=== PATIENT | male | born 1990 | race Caucasian/White ===

== ENCOUNTER 2016-10-22 12:19 | Emergency (ER) | payer OTHER ==
--- NOTE | 2016-10-22 12:58 | DIAGNOSTIC IMAGING REPORT ---
PROCEDURE: XR CHEST 2 VIEW INDICATION: CHEST PAIN, initial encounter TECHNIQUE: PA and lateral view. COMPARISON: None. FINDINGS: Lungs are clear. Cardiovascular structures are normal. Bony thorax is unremarkable. IMPRESSION: 1. Negative chest.
--- NOTE | 2016-10-22 14:00 | ED ORDER SUMMARY ---
..... Patient: DONIS TANG OrderSheet [facility] VisitID: [id number] [place] [address] 26y, M Registration Date/Time: 10/22/2016 ORDER SHEET Weight: 73.4 kg (stated) Allergies: Lidocaine GENERAL ORDERS: Chest 2V Urgent (12:23 10/22/2016 Vicky Paige) (Ack 12:46 LMuller) (12:51 JBoardley R.N.) EKG - ER Stat (12:23 10/22/2016 Vicky Paige) (Ack 12:46 LMuller) (12:51 JBoardley R.N.) Urine Drug Screen Urgent (12:27 10/22/2016 JBoardley R.N. per protocol) (Ack 12:46 LMuller) (14:04 JBoardley R.N.) Cardiac Panel Stat (12:53 10/22/2016 JBoardley R.N. per protocol) (Ack 13:05 LMuller) (13:06 LMuller) MEDICATION ORDERS: IV FLUIDS: IV Saline Lock (12:52 10/22/2016 JBoardley R.N. per protocol) (12:52 JBoardley R.N.) IV NS : initial bolus none -, then 1000 mL/hr for X1 (NOW); Routine (12:52 10/22/2016 JBoardley R.N. per protocol) (12:53 JBoardley R.N.) ORDER SHEET NOTES: [Electronically signed by Cecil Loza R.N. (14:54 10/22/2016)] [Electronically signed by Andre Cho Dr. (06:34 10/25/2016)] [Electronically locked/signed by Cecil Loza R.N. (14:54 10/22/2016)]
--- NOTE | 2016-10-22 14:00 | ED NURSING NOTES ---
Clinical Report - Nurses [facility] [address] [place] [address] 10/22/2016 12:20 Patient: DONIS TANG TRIAGE Triage time 12:22. Acuity: LEVEL 3. Chief Complaint: CHEST PAIN. 12:23 10/22/16. 12:10/22/16. Alert. --12:25 Cecil Loza R.N. 12:10/22/16. BP: 168/85. HR: 90. RR: 18. O2 saturation: 100% on room air. Temp: 98.2 F (oral). --12:25 Cecil Loza R.N. Weight: 73.4 kg stated. Height/Length: 70 inches Per Patient. BMI: 23.2. --12:22 Cecil Loza R.N. Medications Adderall Oral 30 mg, daily. Valium 10mg day. --12:24 Cecil Loza R.N. PROzac Oral. --12:25 Cecil Loza R.N. Medication/allergy information source: the patient. --12:25 Cecil Loza R.N. Allergies Lidocaine. Definite Severe(swelling) (during dental procedure) --12:24 Cecil Loza R.N. History Arrived by private vehicle. Historian: patient. Unaccompanied. Primary physician (YASMIN DESAI). 12:23 10/22/16. This started just prior to arrival. Onset. (30 min ago after drinking energy drink). Treatment DAIRY MANUFACTURING TECHNOLOGIST: None. PAST MEDICAL HX: Immunizations not up to date. SOCIAL HX: Current every day light tobacco smoker (cigarette)- less than 1/2 a pack per day. History of occasional drug use: methamphetamines, marijuana. ("Other stuff in my system"). No alcohol use. No infectious disease exposure. FALL RISK ASSESSMENT: Fall risk assessment completed. No fall risk identified. NUTRITIONAL RISK ASSESSMENT: The nutritional risk assessment revealed no deficiencies. FUNCTIONAL ASSESSMENT: Functional assessment: no impairments noted. LEARNING NEEDS ASSESSMENT: The learning needs assessment revealed no barriers. --12:25 Cecil Loza R.N. PROBLEMS: Sprain. Contusion. Fall. Substance Abuse. Rt great toe injury.. Laceration. Gout. Acute Pain. Tetanus Status. ADHD - Attention Deficit Hyperactivity Disorder. Anxiety Reaction. Depression. Insomnia. --12:25 Cecil Loza R.N. ADDITIONAL SURGERIES: no known surgeries. Assessment 12:10/22/16. --12:25 Cecil Loza R.N. Interventions 12:10/22/16. 12:10/22/16. ID and allergy band on patient. To treatment room. --12: Cecil Loza R.N. PHYSICAL ASSESSMENT 12:10/22/16. GENERAL / NEURO / PSYCH: Alert. Oriented X 4. Appears anxious. RESPIRATORY: Respirations not labored. CVS: Cardiac rhythm: sinus tachycardia. EXTREMITIES: No lower extremity edema. SKIN: Skin is warm and dry. --12: Cecil Loza R.N. 12:10/22/16. CVS: Pulses within normal limits. Capillary refill less than 2 seconds. --12:25 Cecil Loza R.N. NURSING PROGRESS NOTES 12:10/22/16. The plan of care for this patient has been created. Oxygen administered at 2 liters. pelt inspector, pulse oximeter and NIBP monitor placed on patient; monitor alarms on. Patient gowned. Head of bed elevated. Reassurance given. Two patient identifiers checked. Call light placed in reach. Side rails up x 2. Bed placed in lowest position. Brakes of bed on. Brakes of chair on. --12: Cecil Lzoa R.N. 12:10/22/16. Patient ready for evaluation- chart flagged and notification provided. --12: Cecil Loza R.N. 12:10/22/16. ( Pt is unable to provide urine). --12: Cecil Loza R.N. 12:47 10/22/2016 Site #1 started via IV in the right with an 20g angiocath, with aseptic technique and good blood return; one attempt. Blood drawn: rainbow set. Labeled in the presence of the patient and sent to the lab. --12:52 Cecil Loza R.N. 12:53 10/22/2016 Started bag #1 1000 mL IV Fluids IV NS (Saline); at 1000 mL/hr over 1 hour(s) via site #1. Allergies verified and confirmed 5 rights. IV patency established. IV site checked: no pain, redness, or swelling. IV flushed thoroughly pre- and post-medication administration. Completed per protocol. --12:53 Cecil Loza R.N. 12:59 10/22/16. EKG time: (1301). EKG was ordered, performed by a tech and shown to the ED physician. --12:59 Cecil Loza R.N. 12:10/22/16. BP: 137/82. HR: 98. RR: 22. O2 saturation: 100% on room air. --12:59 Cecil Loza R.N. 12:59 10/22/16. Cardiac rhythm: normal sinus rhythm. --12:59 Cecil Loza R.N. 13:59 10/22/2016 Site #1 removed upon discharge. Catheter intact. --14:04 Cecil Loza R.N. 14:10/22/2016 IV Fluids IV NS Discontinued: bag #1 infused. Total amount infused: 1000 mL. IV patency established. IV site checked: no pain, redness, or swelling. IV flushed thoroughly. --14:05 Cecil Loza R.N. DISPOSITION / DISCHARGE 14:10/22/16. Condition at departure: improved. The goals identified in the patient's plan of care were met. No learning barriers present. Discharge instructions provided and reviewed with the patient. Reviewed warnings. Reviewed medication(s). Treatments reviewed. Patient verbalized understanding. Written instructions provided in [place]an. The patient was discharged by the physician. He was discharged home and accompanied by aircraft structural repairer. He left the Emergency Department ambulatory and via private vehicle. School Inspector driving. FALL RISK ASSESSMENT: Fall risk assessment completed. No fall risk identified. --14:06 Cecil Loza R.N. 14:10/22/16. BP: 134/72. HR: 77. RR: 14. O2 saturation: 100% on room air. Temp: 98.1 F (oral). --14:06 Cecil Loza R.N. 14:06 10/22/16. Departure time: 14:06. --14:06 Cecil Loza R.N. Locked/Released at 10/22/2016 14:54 by Cecil Loza R.N.
--- NOTE | 2016-10-22 14:00 | ED NURSING NOTES ---
Clinical Report - Nurses [facility] [address] [place] [address] 10/22/2016 12:20 Patient: DONIS TANG TRIAGE Triage time 12:22. Acuity: LEVEL 3. Chief Complaint: CHEST PAIN. 12:23 10/22/16. 12:10/22/16. Alert. --12:25 eCcil Loza R.N. 12:10/22/16. BP: 168/85. HR: 90. RR: 18. O2 saturation: 100% on room air. Temp: 98.2 F (oral). --12:25 Cecil Loza R.N. Weight: 73.4 kg stated. Height/Length: 70 inches Per Patient. BMI: 23.2. --12:22 Cecil Loza R.N. Medications Adderall Oral 30 mg, daily. Valium 10mg day. --12:24 Cecil Loza R.N. PROzac Oral. --12:25 Cecil Loza R.N. Medication/allergy information source: the patient. --12:25 Cecil Loza R.N. Allergies Lidocaine. Definite Severe(swelling) (during dental procedure) --12:24 Cecil Loza R.N. History Arrived by private vehicle. Historian: patient. Unaccompanied. Primary physician (YASMIN DESAI). 12:23 10/22/16. This started just prior to arrival. Onset. (30 min ago after drinking energy drink). Treatment RADIOLOGIC TECHNOLOGY PROGRAM DIRECTOR: None. PAST MEDICAL HX: Immunizations not up to date. SOCIAL HX: Current every day light tobacco smoker (cigarette)- less than 1/2 a pack per day. History of occasional drug use: methamphetamines, marijuana. ("Other stuff in my system"). No alcohol use. No infectious disease exposure. FALL RISK ASSESSMENT: Fall risk assessment completed. No fall risk identified. NUTRITIONAL RISK ASSESSMENT: The nutritional risk assessment revealed no deficiencies. FUNCTIONAL ASSESSMENT: Functional assessment: no impairments noted. LEARNING NEEDS ASSESSMENT: The learning needs assessment revealed no barriers. --12:25 Cecil Loza R.N. PROBLEMS: Sprain. Contusion. Fall. Substance Abuse. Rt great toe injury.. Laceration. Gout. Acute Pain. Tetanus Status. ADHD - Attention Deficit Hyperactivity Disorder. Anxiety Reaction. Depression. Insomnia. --12:25 Cecil Loza R.N. ADDITIONAL SURGERIES: no known surgeries. Assessment 12:10/22/16. --12:25 Cecil Loza R.N. Interventions 12:10/22/16. 12:10/22/16. ID and allergy band on patient. To treatment room. --12: Cecil Loza R.N. PHYSICAL ASSESSMENT 12:10/22/16. GENERAL / NEURO / PSYCH: Alert. Oriented X 4. Appears anxious. RESPIRATORY: Respirations not labored. CVS: Cardiac rhythm: sinus tachycardia. EXTREMITIES: No lower extremity edema. SKIN: Skin is warm and dry. --12: Cecil Loza R.N. 12:10/22/16. CVS: Pulses within normal limits. Capillary refill less than 2 seconds. --12:25 Cecil Loza R.N. NURSING PROGRESS NOTES 12:10/22/16. The plan of care for this patient has been created. Oxygen administered at 2 liters. night monitor, pulse oximeter and NIBP monitor placed on patient; monitor alarms on. Patient gowned. Head of bed elevated. Reassurance given. Two patient identifiers checked. Call light placed in reach. Side rails up x 2. Bed placed in lowest position. Brakes of bed on. Brakes of chair on. --12: Cecil Loza R.N. 12:10/22/16. Patient ready for evaluation- chart flagged and notification provided. --12: Cecil Loza R.N. 12:10/22/16. ( Pt is unable to provide urine). --12: Cecil Loza R.N. 12:47 10/22/2016 Site #1 started via IV in the right with an 20g angiocath, with aseptic technique and good blood return; one attempt. Blood drawn: rainbow set. Labeled in the presence of the patient and sent to the lab. --12:52 Cecil Loza R.N. 12:53 10/22/2016 Started bag #1 1000 mL IV Fluids IV NS (Saline); at 1000 mL/hr over 1 hour(s) via site #1. Allergies verified and confirmed 5 rights. IV patency established. IV site checked: no pain, redness, or swelling. IV flushed thoroughly pre- and post-medication administration. Completed per protocol. --12:53 Cecil Loza R.N. 12:59 10/22/16. EKG time: (1301). EKG was ordered, performed by a tech and shown to the ED physician. --12:59 Cecil Loza R.N. 12:10/22/16. BP: 137/82. HR: 98. RR: 22. O2 saturation: 100% on room air. --12:59 Cecil Loza R.N. 12:59 10/22/16. Cardiac rhythm: normal sinus rhythm. --12:59 Cecil Loza R.N. 13:59 10/22/2016 Site #1 removed upon discharge. Catheter intact. --14:04 Cecil Loza R.N. 14:10/22/2016 IV Fluids IV NS Discontinued: bag #1 infused. Total amount infused: 1000 mL. IV patency established. IV site checked: no pain, redness, or swelling. IV flushed thoroughly. --14:05 Cecil Loza R.N. DISPOSITION / DISCHARGE 14:10/22/16. Condition at departure: improved. The goals identified in the patient's plan of care were met. No learning barriers present. Discharge instructions provided and reviewed with the patient. Reviewed warnings. Reviewed medication(s). Treatments reviewed. Patient verbalized understanding. Written instructions provided in [place]. The patient was discharged by the physician. He was discharged home and accompanied by supervisor gear repair. He left the Emergency Department ambulatory and via private vehicle. Director Of Trauma driving. FALL RISK ASSESSMENT: Fall risk assessment completed. No fall risk identified. --14:06 Cecil Loza R.N. 14:10/22/16. BP: 134/72. HR: 77. RR: 14. O2 saturation: 100% on room air. Temp: 98.1 F (oral). --14:06 Cecil Loza R.N. 14:06 10/22/16. Departure time: 14:06. --14:06 Cecil Loza R.N. Locked/Released at 10/22/2016 14:54 by Cecil Loza R.N.
--- NOTE | 2016-10-22 14:00 | ED CLINICAL REPORT ---
Clinical Report - Physicians/Mid Levels [facility] [address] [place] [address] 10/22/2016 12:20 Patient: DONIS TANG Arrived- By private vehicle. Historian- patient. HISTORY OF PRESENT ILLNESS Chief Complaint: CHEST PAIN. This started just prior to arrival today and is still present but is improving. It was abrupt in onset and has been constant but is not gone now. At its maximum, severity described as mild. When seen in the E.D., it was almost gone. Modifying factors- (patient reports the discomfort is nonexertional.). Not worsened by anything. Not relieved by anything. It is described as tightness and it is described as located in the central chest area. No radiation. No nausea, vomiting, difficulty breathing or diaphoresis. (Reports no hemoptysis, recent trauma, recent surgery or leg swelling). No additional chest pain. (Patient states that this occurred right after having an energy drink.). Similar symptoms previously: None. Recent medical care: Not recently seen/assessed. REVIEW OF SYSTEMS No fever, chills, pedal edema or calf pain. All systems otherwise negative, except as recorded above. PAST HISTORY Risk factors for DVT/pulmonary embolism- prior history of DVT and pulmonary embolism, recent surgery, recent CA, congestive heart failure, cancer, clotting disorder, estrogens, obesity, immobility, advanced age and vena cava filter in place. SOCIAL HISTORY Smoker- current status unknown. History of drug use. No alcohol use. Is a local resident. FAMILY HISTORY History of heart disease (no family history of early cardiac disease). ADDITIONAL NOTES The nursing notes have been reviewed. PHYSICAL EXAM Vital Signs: 10/22/2016 12:22 BP: 168/85. HR: 90. RR: 18. O2 saturation: 100%. Temp: 98.2 F. Blood pressure normal. Oxygen saturation normal. Appearance: Alert. Oriented X3. No acute distress. No marfanoid habitus. (patient is wearing sunglasses while waiting in his room). Eyes: Pupils equal, round and reactive to light. Eyes normal inspection. ENT: Ears normal. Nose normal. Pharynx normal. Neck: Normal inspection. No JVD. CVS: Normal heart rate and rhythm. Heart sounds normal. Pulses normal. No decreased pulses. Respiratory: No respiratory distress. Breath sounds normal. Chest nontender. Abdomen: Soft and nontender. Bowel sounds normal. No organomegaly. No mass. Back: Normal external inspection. Skin: Skin warm and dry. Normal skin color. No rash. Normal skin turgor. Extremities: Extremities exhibit normal ROM. No lower extremity edema. LABS, X-RAYS, AND EKG EKG: Rate: 92. Normal P waves. Normal VANNESSA. Normal QRS complex. Normal axis. Normal ST and T waves and QT. Prior EKG unavailable. The study has been interpreted contemporaneously. The study has been independently viewed by me. The EKG appears to be a good tracing. Chest X-ray: Widened mediastinum (no apical capping). (PROCEDURE: XR CHEST 2 VIEW INDICATION: CHEST PAIN, initial encounter TECHNIQUE: PA and lateral view. COMPARISON: None. FINDINGS: Lungs are clear. Cardiovascular structures are normal. Bony thorax is unremarkable. IMPRESSION: 1. Negative chest.). PROGRESS AND PROCEDURES Course of Care: the patient is a pleasant 26-year-old male with no pertinent past medical history presenting for reevaluation of chest pain. Patient is at low risk for acute myocardial infarction. Patient does not have any significant risk factors other than some substance abuse which she reports occasional use. Patient is resting in bed and in no acute distress. Symptoms occurred after the onset of having an energy drink. We will order an EKG for evaluation of any conduction abnormalities noted to be the result of the energy drink or congenital abnormality which would put the patient at risk for , possible cardiac events. Chest x-ray is also been ordered for evaluation of any signs of pneumonia or intrathoracic pathology. Patient is agreeable to the treatment and plan. Do not feel patient requires laboratory studies. Patient is a otherwise healthy and less than 30-year-old male. Workup does not show any acute abnormalities. EKG and chest x-ray unremarkable. Patient has been regular on the monitor since arrival here in the emergency department. Vital signs are unremarkable. Do not feel patient is acute myocardial infarction, pneumonia, pneumothorax, thoracic aortic dissection. patient is PE RC negative. Do not feel patient requires further workup for pulmonary embolism. Discussed with patient workup, diagnosis, home care, follow-up, and return precautions. All questions an The patient expressed understanding of these instructions and was agreeable to them. CLINICAL IMPRESSION Chest pain characterized as "discomfort" .12 lead EKG performed. 10/22/2016 12:59 BP: 137/82. HR: 98. RR: 22. O2 saturation: 100%. Blood pressure normal. Oxygen saturation normal. INSTRUCTIONS (Please try to sober up. There is help if you need.). Warnings: GENERAL WARNINGS: Return or contact your physician immediately if your condition worsens or changes unexpectedly, if not improving as expected, or if other problems arise. SPECIFICALLY, return if you develop chest, neck, jaw, shoulder, arm, or back pain, difficulty breathing, a fluttering sensation in your chest, lightheadedness, fainting, excessive fatigue, or sudden sweating. Your Current Medications: CONTINUE TAKING THE FOLLOWING MEDICATIONS: Adderall Oral : 30 mg daily. PROzac Oral. Valium 10mg day*. OTC Medications: Acetaminophen (available over the counter): take according to label instructions. Motrin (available over the counter): take according to label instructions. Follow-up: Return to the emergency department as needed. Follow up with your doctor in two days. Reason for referral: recheck today's concerns. Summary of care provided to patient via paper. Screening today revealed the patient's blood pressure to be in the normal range. The patient should follow up with a primary care provider for blood pressure management. Understanding of the discharge instructions verbalized by patient. (Electronically signed by Andre Cho Dr. 10/25/2016 6:34)
--- NOTE | 2016-10-22 14:00 | ED ORDER SUMMARY ---
..... Patient: DONIS TANG OrderSheet [facility] VisitID: [id number] [place] [address] 26y, M Registration Date/Time: 10/22/2016 ORDER SHEET Weight: 73.4 kg (stated) Allergies: Lidocaine GENERAL ORDERS: Chest 2V Urgent (12:23 10/22/2016 Vicky Paige) (Ack 12:46 LMuller) (12:51 JBoardley R.N.) EKG - ER Stat (12:23 10/22/2016 Vicky Paige) (Ack 12:46 LMuller) (12:51 JBoardley R.N.) Urine Drug Screen Urgent (12:27 10/22/2016 JBoardley R.N. per protocol) (Ack 12:46 LMuller) (14:04 JBoardley R.N.) Cardiac Panel Stat (12:53 10/22/2016 JBoardley R.N. per protocol) (Ack 13:05 LMuller) (13:06 LMuller) MEDICATION ORDERS: IV FLUIDS: IV Saline Lock (12:52 10/22/2016 JBoardley R.N. per protocol) (12:52 JBoardley R.N.) IV NS : initial bolus none -, then 1000 mL/hr for X1 (NOW); Routine (12:52 10/22/2016 JBoardley R.N. per protocol) (12:53 JBoardley R.N.) ORDER SHEET NOTES: [Electronically signed by Cecil Loza R.N. (14:54 10/22/2016)] [Electronically signed by Andre Cho Dr. (06:34 10/25/2016)] [Electronically locked/signed by Cecil Loza R.N. (14:54 10/22/2016)]
--- NOTE | 2016-10-25 06:35 | ED MAR SUMMARY ---
..... Medication Administration Record [facility] [address] [place] [address] Patient: DONIS TANG Visit ID: [id number] 26y, M Weight: 73.4 kg Height/Length: 70 in BMI: 23.2 ALLERGIES: Lidocaine Start 12:53 10/22/2016 Cecil Loza R.N., Stop 14:05 10/22/2016 Cecil Loza R.N. Medication Administered: IV NS (SALINE), Dose: IV Fluids over 1 hour(s), Rate: 1000 mL/hr, Dispensed: 1000 mL bag, Site: #1 right. Medication Ordered: IV NS : initial bolus none -, then 1000 mL/hr for X1 (NOW); Routine.
--- NOTE | 2016-10-25 06:35 | ED MAR SUMMARY ---
..... Medication Administration Record [facility] [address] [place] [address] Patient: DONIS TANG Visit ID: [id number] 26y, M Weight: 73.4 kg Height/Length: 70 in BMI: 23.2 ALLERGIES: Lidocaine Start 12:53 10/22/2016 Cecil Loza R.N., Stop 14:05 10/22/2016 Cecil Loza R.N. Medication Administered: IV NS (SALINE), Dose: IV Fluids over 1 hour(s), Rate: 1000 mL/hr, Dispensed: 1000 mL bag, Site: #1 right. Medication Ordered: IV NS : initial bolus none -, then 1000 mL/hr for X1 (NOW); Routine.
--- NOTE | 2016-10-25 06:35 | ED DISCHARGE INSTRUCTIONS ---
Patient: DONIS TANG General Instructions [facility] VisitID: [id number] [place] [address] 26y, M Registration Date/Time: 10/22/2016 Chest pain characterized as "discomfort" .12 lead EKG performed. 10/22/2016 12:59 BP: 137/82. HR: 98. RR: 22. O2 saturation: 100%. Blood pressure normal. Oxygen saturation normal. INSTRUCTIONS (Please try to sober up. There is help if you need.). Warnings: GENERAL WARNINGS: Return or contact your physician immediately if your condition worsens or changes unexpectedly, if not improving as expected, or if other problems arise. SPECIFICALLY, return if you develop chest, neck, jaw, shoulder, arm, or back pain, difficulty breathing, a fluttering sensation in your chest, lightheadedness, fainting, excessive fatigue, or sudden sweating. Your Current Medications: CONTINUE TAKING THE FOLLOWING MEDICATIONS: Adderall Oral : 30 mg daily. PROzac Oral. Valium 10mg day*. OTC Medications: Acetaminophen (available over the counter): take according to label instructions. Motrin (available over the counter): take according to label instructions. Follow-up: Return to the emergency department as needed. Follow up with your doctor in two days. Reason for referral: recheck today's concerns. Summary of care provided to patient via paper. Screening today revealed the patient's blood pressure to be in the normal range. The patient should follow up with a primary care provider for blood pressure management. Understanding of the discharge instructions verbalized by patient. ADDITIONAL INFORMATION Chest Pain, Uncertain Cause Chest pain can happen for a number of reasons. Sometimes the cause can not be determined. If yourcondition does not seem serious, and your pain does not appear to be coming from your heart, your doctor may recommend watching it closely. Sometimes the signs of a serious problem take more time to appear. Therefore, watch for the warning signs listed below. Home care After your visit, follow these recommendations: Rest today and avoid strenuous activity. Take any prescribed medicine as directed. Follow-up care Follow up with your doctor or this facility as instructed or if you do not start to feel better within 24 hours. Call 911 Get immediate medical attention if any of the following occur: A change in the type of pain: if it feels different, becomes more severe, lasts longer, or begins to spread into your shoulder, arm, neck, jaw or back Shortness of breath or increased pain with breathing Weakness, dizziness, or fainting Rapid heart beat Get prompt medical attention Call your doctor right away if any of the following occur: Cough with dark colored sputum (phlegm) or blood Fever of 100.4F(38C) or higher, or as directed by your health care provider Swelling, pain or redness in one leg You have been given the following additional information: Chest Pain, Uncertain Cause (Electronically signed by Andre Cho Dr. 10/25/2016 6:34)
--- NOTE | 2016-10-25 06:35 | ED MED RECONCILIATION SUMMARY ---
Patient: DONIS TANG Medication Reconciliation Report [facility] VisitID: [id number] [place] [address] 26y, M Registration Date/Time: 10/22/2016 Weight: 73.4 kg Height/Length: 70 in. BMI: 23.2 ALLERGIES: Lidocaine The patient's Home Medications are listed below: CONTINUE TAKING THE FOLLOWING MEDICATIONS: Adderall Oral 30 mg, daily PROzac Oral Valium 10mg day The source(s) of the original Home Medication information: patient The following Medications were given to the patient in the Emergency Department: IV NS IV Fluids bolus 0, then 1000 mL/hr, administered: 10/22/2016 12:53:00 PM The following Medications were prescribed to the patient: Acetaminophen (available over the counter): take according to label instructions. -- Andre Cho Dr. Motrin (available over the counter): take according to label instructions. -- Andre Cho Dr.
--- NOTE | 2016-10-25 06:35 | ED MED RECONCILIATION SUMMARY ---
Patient: DONIS TANG Medication Reconciliation Report [facility] VisitID: [id number] [place] [address] 26y, M Registration Date/Time: 10/22/2016 Weight: 73.4 kg Height/Length: 70 in. BMI: 23.2 ALLERGIES: Lidocaine The patient's Home Medications are listed below: CONTINUE TAKING THE FOLLOWING MEDICATIONS: Adderall Oral 30 mg, daily PROzac Oral Valium 10mg day The source(s) of the original Home Medication information: patient The following Medications were given to the patient in the Emergency Department: IV NS IV Fluids bolus 0, then 1000 mL/hr, administered: 10/22/2016 12:53:00 PM The following Medications were prescribed to the patient: Acetaminophen (available over the counter): take according to label instructions. -- Andre Cho Dr. Motrin (available over the counter): take according to label instructions. -- Andre Cho Dr.
== END 2016-10-22 14:06 | disposition home or self-care (01) ==
LOC: ED SRH 12:19
DX: R07.89 Other chest pain (principal)
CPT/HCPCS: 90100; 90616; 92610; 92720; 92760; 92761; 92762; 92763; 92764; 92765; 92766; 92767; 95059